=== PATIENT | female | born 1985 | race Caucasian/White ===

== ENCOUNTER 2017-06-28 18:04 | Emergency (ER) | payer BC ==
[~2017-06-28] VITALS: Ht 157.5 cm; Wt 72.7 kg
[2017-06-28] MEDS ORDERED: BENA25CA4 PO (18:11)
[2017-06-28] MEDS ORDERED: TRINTAB3 (18:11)
[2017-06-28] MEDS ORDERED: FAMOTIDINE IV BAG 20 MG in APPROPRIATE DILUENT 1 EA IV ONE (18:45)
[2017-06-28] MEDS ORDERED: diphenhydrAMINE INJ 50MG/ML VIAL (J1200) IV ONE (18:45)
[2017-06-28] MEDS ORDERED: methylPREDNISolone INJ 125 MG/2 ML VIAL (J2930) IV ONE (18:45)
[2017-06-28 19:21] VITALS: BP 130/93
[2017-06-28] MEDS ORDERED: PEPC1TAB4 PO (19:30)
[2017-06-28] MEDS ORDERED: PRED20TA PO (19:30)
== END 2017-06-28 19:36 | disposition home or self-care (01) ==
LOC: M ED 18:04
DX: R22.1 Localized swelling, mass and lump, neck (principal); T78.40XA Allergy, unspecified, initial encounter; Y92.9 Unspecified place or not applicable; Y93.9 Activity, unspecified; Z91.018 Allergy to other foods; Z79.3 Long term (current) use of hormonal contraceptives
CPT/HCPCS: 96374; 96375; 99283; J1200; J2930

== ENCOUNTER → 2018-05-15 | Outpatient (REF) | payer BC ==
[2018-05-15 17:33] LABS: APPEARANCE, URINE HAZY (CLEAR); BACTERIA, URINE AUTO NEGATIVE (NEGATIVE); BILIRUBIN, URINE AUTO NEGATIVE (NEGATIVE); BLOOD, URINE BLOOD 3+ (NEGATIVE); COLOR, URINE YELLOW (YELLOW); GLUCOSE, URINE (UA) AUTO NEGATIVE (NEGATIVE); KETONE, URINE AUTO NEGATIVE (NEGATIVE); LEUKOCYTE ESTERASE, URINE AUTO TRACE (NEGATIVE); MUCUS, URINE SMALL (NEGATIVE); NITRITE, URINE AUTO NEGATIVE (NEGATIVE); PROTEIN, URINE AUTO NEGATIVE (NEGATIVE); RBC, URINE AUTO 17 /HPF (0-3); SPECIFIC GRAVITY URINE AUTO 1.023 (1.002-1.035); SQUAMOUS EPITHELIAL CELL UR AU 2 /HPF (0-6); UROBILINOGEN, URINE AUTO 0.2 mg/dL (0.0-2.0); WBC, URINE AUTO 5 /HPF (0-3)
== END ==
LOC: M LAB REF 17:06
DX: R31.9 Hematuria, unspecified (principal)
CPT/HCPCS: 81001

== ENCOUNTER → 2018-06-13 | Outpatient (CLI) | payer BC | LOC: M RAD 07:33 | DX: R10.11 Right upper quadrant pain (principal) | CPT/HCPCS: J2805 ==

== ENCOUNTER → 2018-08-13 | Outpatient (REF) | payer BC ==
[2018-08-21 14:22] LABS: HPV HYBRID CAPTURE II Negative (Negative)
== END ==
LOC: M SFHCWAGY 08:16
DX: Z12.4 Encounter for screening for malignant neoplasm of cervix (principal)
CPT/HCPCS: G0123

== ENCOUNTER → 2020-04-20 | Outpatient (REF) | payer BC ==
[~2020-04-20] MED LIST: BENA25CA4 PO; PEPC1TAB5 PO; PRED20TA PO; TRINTAB
== END ==
LOC: M LAB REF 09:40
PROVIDERS: ATTEND Dermatology
DX: D22.4 Melanocytic nevi of scalp and neck (principal)

== ENCOUNTER → 2020-05-26 | Outpatient (CLI) | payer BC | LOC: M PLALAB 15:26 | PROVIDERS: ATTEND Advanced Practice Midwife | DX: Z32.00 Encounter for pregnancy test, result unknown (principal) ==

== ENCOUNTER → 2020-05-29 | Outpatient (CLI) | payer BC | LOC: M WUC 10:44 | PROVIDERS: ATTEND Advanced Practice Midwife | DX: Z32.00 Encounter for pregnancy test, result unknown (principal) ==

== ENCOUNTER → 2020-08-22 | Outpatient (REF) | payer BC | LOC: M SFHCWAGY 13:24 | PROVIDERS: ATTEND Nurse Practitioner Women's Health | DX: Z12.4 Encounter for screening for malignant neoplasm of cervix (principal); Z01.419 Encounter for gynecological examination (general) (routine) without abnormal findings ==

== ENCOUNTER → 2020-09-13 | Outpatient (CLI) | payer BC | LOC: M PLALAB 13:35 | PROVIDERS: ATTEND Obstetrics & Gynecology | DX: O36.80X0 Pregnancy with inconclusive fetal viability, not applicable or unspecified (principal); Z3A.00 Weeks of gestation of pregnancy not specified ==

== ENCOUNTER → 2020-09-15 | Outpatient (CLI) | payer BC | LOC: M PLALAB 13:21 | PROVIDERS: ATTEND Obstetrics & Gynecology | DX: O36.80X0 Pregnancy with inconclusive fetal viability, not applicable or unspecified (principal) ==

== ENCOUNTER → 2020-10-06 | Outpatient (CLI) | payer BC ==
[2020-10-06 11:53] LABS: BASO % 0.5 % (0.0-1.0); EOS # 0.5 10^3/uL (0.0-0.5); EOS % 6.1 % (0.0-3.0); HEMOGLOBIN 12.8 g/dl (12.0-15.5); LYMPH # 2.1 10^3/uL (1.5-5.0); LYMPH % 26.5 % (24.0-44.0); MEAN CORPUSCULAR HEMOGLOBIN 28.6 pg (27.0-33.0); MEAN CORPUSCULAR HGB CONC 31.2 g/dl (32.0-36.5); MEAN CORPUSCULAR VOLUME 91.7 fl (80.0-96.0); MONO # 0.5 10^3/uL (0.0-0.8); MONO % 6.3 % (0.0-5.0); NEUTROPHILS # 4.9 10^3/uL (1.5-8.5); NEUTROPHILS % 60.4 % (36.0-66.0); PLATELET COUNT, AUTOMATED 256 10^3/uL (150-450); RED BLOOD COUNT 4.47 10^6/uL (4.00-5.40); WHITE BLOOD COUNT 8.1 10^3/uL (4.0-10.0)
[2020-10-06 12:32] LABS: HEMOGLOBIN A1c 5.7 %
[2020-10-06 12:39] LABS: ALT/SGPT 19 U/L (12-78); BILIRUBIN,TOTAL 0.5 MG/DL (0.2-1.0); BLOOD UREA NITROGEN 9 MG/DL (7-18); CALCIUM LEVEL 8.4 MG/DL (8.5-10.1); CARBON DIOXIDE LEVEL 29 MEQ/L (21-32); CHLORIDE LEVEL 107 MEQ/L (98-107); CREATININE FOR GFR 0.68 MG/DL (0.55-1.30); FREE T4 0.95 NG/DL (0.76-1.46); GLOMERULAR FILTRATION RATE > 60.0 (>60); GLUCOSE, FASTING 85 MG/DL (70-100); SODIUM LEVEL 140 MEQ/L (136-145); THYROID STIMULATING HORMONE 0.876 uIU/ML (0.358-3.740); TOTAL 25(OH) VITAMIN D 32.5 NG/ML (30.0-100.0)
== END ==
LOC: M WUC 09:28
PROVIDERS: ATTEND Physician Assistant
DX: Z13.29 Encounter for screening for other suspected endocrine disorder (principal)

== ENCOUNTER → 2020-11-15 | Outpatient (REF) | payer BC | LOC: M PLALAB 14:33 | PROVIDERS: ATTEND Obstetrics & Gynecology | DX: O36.80X0 Pregnancy with inconclusive fetal viability, not applicable or unspecified (principal) ==

== ENCOUNTER → 2020-11-17 | Outpatient (REF) | payer BC | LOC: M PLALAB 14:30 | PROVIDERS: ATTEND Obstetrics & Gynecology | DX: O36.80X0 Pregnancy with inconclusive fetal viability, not applicable or unspecified (principal); Z3A.00 Weeks of gestation of pregnancy not specified ==

== ENCOUNTER → 2020-11-19 | Outpatient (CLI) | payer BC | LOC: M LAB 13:59 | PROVIDERS: ATTEND Obstetrics & Gynecology | DX: O36.80X0 Pregnancy with inconclusive fetal viability, not applicable or unspecified (principal); Z3A.00 Weeks of gestation of pregnancy not specified ==

== ENCOUNTER → 2020-12-15 | Outpatient (CLI) | payer BC ==
[2020-12-15 13:07] LABS: BASO % 0.4 % (0.0-1.0); EOS # 0.5 10^3/uL (0.0-0.5); HEMATOCRIT 37.2 % (36.0-47.0); HEMOGLOBIN 12.1 g/dl (12.0-15.5); LYMPH % 18.1 % (24.0-44.0); MEAN CORPUSCULAR HEMOGLOBIN 29.7 pg (27.0-33.0); MEAN CORPUSCULAR HGB CONC 32.5 g/dl (32.0-36.5); MEAN CORPUSCULAR VOLUME 91.4 fl (80.0-96.0); MONO # 0.6 10^3/uL (0.0-0.8); MONO % 5.4 % (2.0-8.0); NEUTROPHILS % 71.8 % (36.0-66.0); PLATELET COUNT, AUTOMATED 231 10^3/uL (150-450); RED BLOOD COUNT 4.07 10^6/uL (4.00-5.40); WHITE BLOOD COUNT 11.2 10^3/uL (4.0-10.0)
[2020-12-15 13:33] LABS: GLUCOSE CHALLENGE TEST 1 HOUR 125 MG/DL (LESS THAN 140)
[2020-12-15 14:20] LABS: HIV 1&2 SCREEN CENTAUR NEGATIVE (NEGATIVE)
[2020-12-16 12:43] LABS: HEPATITIS C VIRUS ABY INDEX < 0.0 INDEX (<0.8)
== END ==
LOC: M PLALAB 08:07
PROVIDERS: ATTEND Obstetrics & Gynecology
DX: Z34.81 Encounter for supervision of other normal pregnancy, first trimester (principal); Z3A.01 Less than 8 weeks gestation of pregnancy

== ENCOUNTER → 2021-02-07 | Outpatient (CLI) | payer BC | LOC: M WHC 16:20 | PROVIDERS: ATTEND Obstetrics & Gynecology | DX: Z34.92 Encounter for supervision of normal pregnancy, unspecified, second trimester (principal); Z3A.15 15 weeks gestation of pregnancy; Z53.9 Procedure and treatment not carried out, unspecified reason ==

== ENCOUNTER → 2021-02-27 | Outpatient (CLI) | payer BC ==
--- NOTE | 2021-02-27 08:18 | REP ---
INDICATION: ANATOMY COMPARISON: None. TECHNIQUE: Transabdominal obstetrical ultrasound with color Doppler evaluation. FINDINGS: Examination demonstrates a single live intrauterine in cephalic presentation. motion is identified by technologist. Placenta is noted anterior/fundal and grade 0 without evidence for placenta previa or abruption. Amniotic fluid volume is normal. Cervix measures 3.3 cm in length and appears closed.. Gestational age by LMP 18 weeks 5 days with ABBIE 07/26/2021. Gestational age by current measurements 19 weeks 0 days with ABBIE 07/24/2021. FHR equals 143 beats per minute. Estimated weight 277 grams (72ndpercentile). Anatomical assessment demonstrates normal structures including cranium, choroid plexus, cavum, cerebellum/posterior fossa, lungs, four-chamber heart/ventricular outflow tracts, diaphragm, stomach, cord insertion/three-vessel cord, kidneys/bladder, and extremities. IMPRESSION: Single live intrauterine in cephalic presentation demonstrating appropriate estimated weight. Limited evaluation of the facial features (nose/lips) and spine. Remainder of the anatomical assessment is complete and normal. <Electronically signed by Nolan Herrera > 02/27/21 2072
== END ==
LOC: M WHC 06:59
PROVIDERS: ATTEND Obstetrics & Gynecology
DX: Z34.82 Encounter for supervision of other normal pregnancy, second trimester (principal)

== ENCOUNTER → 2021-03-22 | Outpatient (CLI) | payer BC ==
--- NOTE | 2021-03-22 09:04 | REP ---
INDICATION: F/U ANATOMY COMPARISON: 02/27/2021 TECHNIQUE: Transabdominal obstetrical ultrasound with color Doppler evaluation. FINDINGS: Examination demonstrates a single live intrauterine in transverse presentation. motion is identified by technologist. Placenta is noted anterior and grade 1 without evidence for placenta previa or abruption. Amniotic fluid volume is normal. Cervix measures 5.2 cm in length and appears closed.. Selected gestational age: 22 weeks 2 days with ABBIE 07/26/2021. Gestational age by current measurements 22 weeks 2 days with ABBIE 07/26/2021. FHR equals 155 beats per minute. Estimated weight 456 grams (37thpercentile). Anatomical assessment demonstrates normal structures including cranium, choroid plexus, cavum, cerebellum/posterior fossa, facial features, lungs,diaphragm, stomach, cord insertion/three-vessel cord, kidneys/bladder, and extremities. IMPRESSION: Single live intrauterine in transverse lie demonstrating appropriate interval growth. Limited evaluation of the spine again noted due to positioning. Remainder of the anatomical assessment is complete and normal. <Electronically signed by Nolan Herrera > 03/22/21 0900
== END ==
LOC: M WHC 06:56
PROVIDERS: ATTEND Advanced Practice Midwife
DX: Z34.82 Encounter for supervision of other normal pregnancy, second trimester (principal)

== ENCOUNTER → 2021-03-28 | Outpatient (CLI) | payer BC | LOC: M PLALAB 14:37 | PROVIDERS: ATTEND Advanced Practice Midwife | DX: Z34.90 Encounter for supervision of normal pregnancy, unspecified, unspecified trimester (principal); Z3A.00 Weeks of gestation of pregnancy not specified ==

== ENCOUNTER → 2021-04-25 | Outpatient (CLI) | payer BC ==
[2021-04-25 12:36] LABS: FREE T4 0.73 NG/DL (0.76-1.46); THYROID STIMULATING HORMONE 1.27 uIU/ML (0.358-3.740)
== END ==
LOC: M PLALAB 07:22
PROVIDERS: ATTEND Advanced Practice Midwife
DX: R53.83 Other fatigue (principal)

== ENCOUNTER → 2021-04-25 | Outpatient (CLI) | payer BC ==
--- NOTE | 2021-04-25 10:35 | REP ---
INDICATION: F/U ANATOMY. COMPARISON: Comparison sonography March 22, 2021.. TECHNIQUE: Transabdominal obstetric sonography. FINDINGS: Scanning through the gravid uterus demonstrates a viable single intrauterine gestation in cephalic lie. motion is observed and heart rate is recorded at 147 beats per minute. A anterior placenta is seen, grade 1, without evidence of placenta previa. Closed cervical length is measured at 4.5 cm transabdominally. No extrauterine abnormality is observed. Amniotic fluid is subjectively normal. spine is visualized today and is felt to be unremarkable. In conjunction with the prior studies, anatomic survey is felt to be complete.. Biometry chart: BPD 6.7 cm, 27 weeks 0 days Head circumference 24.8 cm, 27 weeks 0 days Abdominal circumference 22.7 cm, 27 weeks 1 day Femur length 5.2 cm, 27 weeks 4 days Humeral length 4.6 cm, 27 weeks 3 days HC AC ratio normal 1.09 Cephalic index normal 0.75 Estimated weight 1046 g, 2 lb 4 oz, 54th percentile for 26 weeks 6 days IMPRESSION: Viable single intrauterine gestation at 27 weeks 2 days by today's composite sonographic criteria. ABBIE by today's sonography July 23, 2021. No complication identified. Expected gestational age estimate based on known ABBIE of 26 July 2021 is 26 weeks 6 days. Appropriate interval growth. <Electronically signed by Gabriel Thomson > 04/25/21 1031
== END ==
LOC: M WHC 06:56
PROVIDERS: ATTEND Advanced Practice Midwife
DX: Z34.82 Encounter for supervision of other normal pregnancy, second trimester (principal)

== ENCOUNTER 2021-06-14 21:09 | Inpatient (IN) | payer BC ==
[~2021-06-14] VITALS: Ht 157.5 cm; Wt 92.4 kg
[2021-06-14 21:36] VITALS: BP 170/96
[2021-06-14 21:53] VITALS: BP 171/92
[2021-06-14 22:09] VITALS: BP 165/88
[2021-06-14] MEDS ORDERED: ACETAMINOPHEN 500 MG TAB PO PRN (22:20)
[2021-06-14] MEDS ORDERED: OXYTOCIN DRIP 30 UNITS in IV 1 EA IV PRN (22:40)
[2021-06-14] MEDS ORDERED: MAG Sulf (L&D) 4 GM/100 ML 4 GM in IV 1 EA IV ONE (22:40)
[2021-06-14] MEDS ORDERED: CARBOPROST TROMETHAMINE 250 MCG/ML AMP IM PRN (22:40)
[2021-06-14] MEDS ORDERED: CALCIUM GLUCONATE 1,000 MG in D5W MINI-BAG PLUS 100 ML IV PRN (22:40)
[2021-06-14] MEDS ORDERED: LIDOCAINE 1% MDV 20ML VIAL INFIL PRN (22:40)
[2021-06-14] MEDS ORDERED: OXYTOCIN INJ 10 UNITS/ML VIAL (J2590) IM PRN (22:40)
[2021-06-14 22:57] LABS: HEMATOCRIT 34.9 % (36.0-47.0); HEMOGLOBIN 11.3 g/dl (12.0-15.5); MEAN CORPUSCULAR HEMOGLOBIN 29.4 pg (27.0-33.0); MEAN CORPUSCULAR HGB CONC 32.4 g/dl (32.0-36.5); MEAN CORPUSCULAR VOLUME 90.6 fl (80.0-96.0); PLATELET COUNT, AUTOMATED 195 10^3/uL (150-450); RED BLOOD COUNT 3.85 10^6/uL (4.00-5.40); WHITE BLOOD COUNT 11.6 10^3/uL (4.0-10.0)
[2021-06-14] MEDS: BETAMETHASONE SOLUSPAN 6MG/ML 5ML VIAL (J0702 PER 3MG) IM SCH (23:17)
[2021-06-14] MEDS: MAG Sulf (OBGYN) 20GM/500ML 20,000 MG in IV 1 EA IV SCH (23:55)
[2021-06-15] VITALS (65 sets, daily range): BP systolic 112–186; BP diastolic 58–105
[2021-06-15] MEDS ORDERED: hydrALAZINE 20MG/ML 1ML VIAL (J0360 PER 20MG) IV STA
[2021-06-15 01:08] LABS: ALT/SGPT 26 U/L (12-78); BILIRUBIN,TOTAL 0.2 MG/DL (0.2-1.0); CREATININE FOR GFR 0.58 MG/DL (0.55-1.30); GLOMERULAR FILTRATION RATE > 60.0 (>60); LDH LACTATE DEHYDROGENASE 226 U/L (84-246); URIC ACID 4.4 MG/DL (2.6-6.0)
--- NOTE | 2021-06-15 06:32 | HPE ---
HISTORY AND PHYSICAL DATE OF ADMISSION: 06/14/2021 HISTORY OF PRESENT ILLNESS: Allyssa is a 35-year-old 3 para 0-0-2-0 at 33 and 6/7th weeks gestation with an EDC of 07/27/21 based on first trimester ultrasound. She presents to Labor and Delivery today with a report of elevated blood pressure today in the office during her visit as well as severe range blood pressure at home this evening. She does also report a mild dull headache, however she has not taken any Tylenol for the headache. She denies visual disturbances, epigastric pain and right upper quadrant discomfort. She denies painful contractions, vaginal bleeding or leakage of fluid. The fetus has been active. Her care was initiated at [facility] in the first trimester. Her course has been uncomplicated until today's presentation. OBSTETRIC HISTORY: Spontaneous miscarriage x2. OBSTETRIC LABS: O positive, antibody screen is negative, syphilis is negative, gonorrhea and chlamydia negative, hepatitis B is negative, hepatitis C is negative. HIV is negative, Rubella is immune. Gestational diabetic screen is normal at 125. Urine culture showed no growth. GBS is unknown. PAST MEDICAL HISTORY: Abnormal PAP smear, cervical dysplasia. PAST SURGICAL HISTORY: Colposcopy, mole removal. FAMILY HISTORY: Hypertension, heart disease, thyroid disease, liver cancer, prostate cancer. SOCIAL HISTORY: The patient is . Her is at bedside. She is employed as a pharmacist. She is a nonsmoker. Denies alcohol and drug use. Denies a history of any sexually transmitted infections and denies a history of abuse, physical, sexual and emotional. ALLERGIES: No known drug allergies. CURRENT MEDICATIONS: vitamin. OBJECTIVE: Upon arrival, blood pressure is elevated at 170/96, 171/92, 165/88. Her abdomen is gravid, cephalic presentation. Estimated weight 4 pounds. Bedside ultrasound confirms cephalic presentation. heart rate is 135 with moderate variability, positive accelerations, negative decelerations. There is no pattern of contractions. A sterile vaginal examination is deferred at this time. GBS culture has been obtained. Pre-eclamptic labs done earlier in the day; hemoglobin 11.9, hematocrit 36.3, platelets are 206,000, AST is 21, ALT 27, alkaline phosphatase is 76 and spot urine is 0.63. ASSESSMENT: Intrauterine at 33 and 6/7th weeks. heart rate is Category 1, preeclampsia. PLAN: Per consult with Dr. Amy David. Admit the patient to Labor and Delivery. Betamethasone for lung maturity, magnesium sulfate for __ prophylaxis, IV antihypertensive protocol as needed. Plan to likely induce the patient once she is beta complete or pending worsening condition and blood pressures. I did review risks, benefits and alternatives with the patient, and her and her 's questions have been answered. She has been verbally consented for emergency surgery and blood products if they are necessary.
[2021-06-15] MEDS ORDERED: ACETAMINOPHEN 500 MG TAB PO PRN (07:35)
[2021-06-15] MEDS: LR 1,000 ML IV SCH ×3 (08:14→23:35)
[2021-06-15] MEDS: MAG Sulf (OBGYN) 20GM/500ML 20,000 MG in IV 1 EA IV SCH ×2 (08:59→18:59)
--- NOTE | 2021-06-15 20:08 | IPNPDOC ---
Obstetrical Progress Note Date of Service Jun 15, 2021 Subjective 35-year-old G1, P0 at 34+0 weeks gestation. Admitted with a diagnosis of preeclampsia with severe features. She has been started on betamethasone corticosteroids course. She was also started on magnesium sulfate for seizure/neuro prophylaxis. She is currently without any headache. Her blood pressures were normalized from a severe range with IV antihypertensives. She has not required any IV antihypertensives over the past several hours. She is also denying right upper quadrant pain shortness of breath or chest pain. We discussed the rationale for timing of delivery and mode of delivery plan. She agrees with the plan of proceeding with induction of labor since she is 34+ weeks gestation, and has preeclampsia with severe features. SVE: Fingertip d ilation, 25% effacement -3 station. Cephalic. Objective Vital Signs Date Time Temp Pulse Resp B/P (MAP) Pulse Ox O2 Delivery O2 Flow Rate FiO2 06/15/21 19:15 98.7 94 18 142/78 (99) MICHAEL DAVIS DO Jun 15, 2021 20:08
[2021-06-15] MEDS: BETAMETHASONE SOLUSPAN 6MG/ML 5ML VIAL (J0702 PER 3MG) IM SCH (23:20)
[2021-06-15] MEDS ORDERED: miSOPROStol 50MCG 1/2 TABLET SL ONE (23:40)
[2021-06-16] VITALS (41 sets, daily range): BP systolic 116–183; BP diastolic 59–91
[2021-06-16] MEDS: MAG Sulf (OBGYN) 20GM/500ML 20,000 MG in IV 1 EA IV SCH ×3 (05:05→17:55)
--- NOTE | 2021-06-16 06:10 | IPNPDOC ---
Obstetrical Progress Note Date of Service Jun 16, 2021 Subjective Patient is not feeling uncomfortable with her contractions. No BUENROSTRO, visual changes, RUQ pain, sob, cp. Objective Vital Signs Date Time Temp Pulse Resp B/P (MAP) Pulse Ox O2 Delivery O2 Flow Rate FiO2 06/16/21 02:44 90 18 132/70 (90) 06/16/21 02:14 98.6 Assessment Heart Rate Tracing: Category II Tocometer Contractions: Yes Frequency: irregular Sterile Vaginal Examination Dilation: Fingertip Station: -3 Cervical Consistency: Firm Cervical Position: Posterior Assessment and Plan Additional Comments Patient is having recurrent late decelerations and prolonged periods of minimal variability without accelerations. Expressed to patient my concern for uteroplacental insufficiency. She is remote from delivery and has pre-eclampsia with severe features. She has completed corticosteroids. Offered to proceed with PLTCS now, and she has agreed to proceed in this fashion. R/b/a/i of PLTCS reviewed and informed consent obtained. Preparations for the OR being made. MICHAEL DAVIS DO Jun 16, 2021 06:10
[2021-06-16] MEDS ORDERED: MORPHINE PRES-FREE INJ 10 MG/10 ML VIAL (J2274) As Ordered ONE (06:16)
[2021-06-16] MEDS ORDERED: OXYTOCIN 30 UNITS IN 0.9% NaCl 500ML IV BAG (J2590) As Ordered ONE ×2 (06:17→08:34)
[2021-06-16] MEDS ORDERED: AZITHROMYCIN INJ 500 MG, VIAL MATE ADAPTER 1 EACH in NS 250 ML IV ONE (06:20)
[2021-06-16] MEDS ORDERED: TRANEXAMIC ACID INJection 1,000 MG in NS 100 ML IV PRN (06:20)
[2021-06-16] MEDS ORDERED: BICITRA 30ML SOLN UDC PO ONE (06:20)
[2021-06-16] MEDS ORDERED: ceFAZolin SOD 2 GM in IV 1 EA IV ONE (06:20)
[2021-06-16] MEDS ORDERED: CARBOPROST TROMETHAMINE 250 MCG/ML AMP IM PRN (06:20)
[2021-06-16 06:49] LABS: HEMATOCRIT 36.2 % (36.0-47.0); HEMOGLOBIN 11.8 g/dl (12.0-15.5); MEAN CORPUSCULAR HEMOGLOBIN 29.5 pg (27.0-33.0); MEAN CORPUSCULAR HGB CONC 32.6 g/dl (32.0-36.5); MEAN CORPUSCULAR VOLUME 90.5 fl (80.0-96.0); PLATELET COUNT, AUTOMATED 213 10^3/uL (150-450); WHITE BLOOD COUNT 18.2 10^3/uL (4.0-10.0)
[2021-06-16 07:17] LABS: ALBUMIN 2.7 GM/DL (3.2-5.2); ALT/SGPT 28 U/L (12-78); BILIRUBIN,TOTAL 0.2 MG/DL (0.2-1.0); BLOOD UREA NITROGEN 5 MG/DL (7-18); CARBON DIOXIDE LEVEL 20 MEQ/L (21-32); CHLORIDE LEVEL 105 MEQ/L (98-107); GLOMERULAR FILTRATION RATE > 60.0 (>60); GLUCOSE, FASTING 119 MG/DL (70-100); LDH LACTATE DEHYDROGENASE 295 U/L (84-246); POTASSIUM SERUM 4.3 MEQ/L (3.5-5.1); SODIUM LEVEL 137 MEQ/L (136-145); TOTAL PROTEIN 6.4 GM/DL (6.4-8.2); URIC ACID 5.1 MG/DL (2.6-6.0)
[2021-06-16] MEDS ORDERED: diphenhydrAMINE 50MG/ML VIAL (J1200) IV PRN (07:23)
[2021-06-16] MEDS ORDERED: ONDANSETRON 4MG/2ML VIAL IV PRN ×3 (07:23→08:20)
[2021-06-16] MEDS ORDERED: NALOXONE INJ 0.4MG/1ML VIAL (J2310 PER 1MG) IV PRN ×2 (07:23)
[2021-06-16] MEDS ORDERED: METOCLOPRAMIDE INJ 10MG/2ML VIAL (J2765 PER 1) IV PRN (07:23)
[2021-06-16] MEDS ORDERED: NALBUPHINE HCL 10 MG/ML AMP (J2300) IV PRN (07:23)
[2021-06-16] MEDS ORDERED: PHENYLephrine 500MCG 5ML (100MCG/ML) SYRINGE As Ordered ONE (07:45)
[2021-06-16] MEDS ORDERED: ePHEDrine SULFATE 25 MG/5 ML(5MG/ML) SYRINGE As Ordered ONE (07:45)
[2021-06-16] MEDS ORDERED: dexameTHASONE 4 MG/ML 1ML VIAL (J1100 PER 1MG) As Ordered ONE (07:45)
[2021-06-16] MEDS ORDERED: ONDANSETRON 4MG/2ML VIAL As Ordered ONE (07:45)
[2021-06-16] MEDS ORDERED: KETOROLAC 60MG 2ML VIAL As Ordered ONE (07:45)
[2021-06-16 08:15] LABS: CORD GAS ABE V -5.6; CORD GAS HCO3 V 21.9 MEQ/L; CORD GAS O2 SAT V 24.3 %; CORD GAS PCO2 V 50.4 mmHg; CORD GAS PH V 7.256 UNITS; CORD GAS PO2 V 15.4 mmHg; CORD GAS SBC V 18.2 MEQ/L; CORD GAS TCO2 V 23.5 MEQ/L
[2021-06-16 08:18] LABS: CORD GAS ABE A -6.2; CORD GAS HCO3 A 22.1 MEQ/L; CORD GAS O2 SAT A 17.4 %; CORD GAS PCO2 A 54.6 mmHg; CORD GAS PH A 7.225 UNITS; CORD GAS PO2 A 13.7 mmHg; CORD GAS SBC A 17.7 MEQ/L; CORD GAS TCO2 A 23.8 MEQ/L
[2021-06-16] MEDS ORDERED: MEASLES,MUMPS,RUBELLA VACCINE INJ (MMR-II) (90707) SC SCH (08:20)
[2021-06-16] MEDS ORDERED: SIMETHICONE 80MG CHEW TAB PO PRN (08:20)
[2021-06-16] MEDS ORDERED: RHOGAM 300 MCG (1500 IU) INJ (J2790) IM SCH (08:20)
[2021-06-16] MEDS ORDERED: PERCOCET 5MG/325MG TAB PO PRN ×3 (08:20→08:55)
--- NOTE | 2021-06-16 08:37 | ROOPDOC ---
[facility] Report Of Operation Report of Operation DATE OF PROCEDURE: 06/16/2021 PREPROCEDURE DIAGNOSES: 34+ weeks gestation, preeclampsia with severe features, remote from delivery, nonreassuring heart rate tracing POSTPROCEDURE DIAGNOSES: Same PROCEDURE: Primary low transverse section SURGEON: Stefano Pearson DO FACOG MICROSTRATEGY ARCHITECT DEVELOPER: Jayjay Wheat CNM (Essential role in retraction, extraction, and closure of all tissue layers) ANESTHESIA: Spinal ESTIMATED BLOOD LOSS: 500 mL. IV FLUIDS: 1600 mL LR URINE OUTPUT: 100 mL COMPLICATIONS: None. PREOPERATIVE ANTIBIOTICS: Ancef 2g IV x 1, azithromycin 500mg IV. COMPLICATIONS: none DATA: Apgars 8 and 9. Birthweight 1990 g, 4 lbs 6 oz. Female. SPECIMENS: none PRIMARY INDICATION FOR : Nonreassuring heart rate tracing, remote from delivery DESCRIPTION OF PROCEDURE: The patient was counseled on the risks, benefits, indications and alternatives of the procedure. Informed consent was obtained. She was taken to the operating room with IV running and placed on the operating table in the dorsal supine position with a leftward tilt. Regional anesthesia was found to be adequate. Sequential compression devices were placed on the lower extremities. A Oliveira catheter was placed under sterile conditions. She was prepared and draped in normal sterile fashion. A time out was performed per protocol. Regional anesthesia was again found to be adequate. A Pfannenstiel skin incision was made with the 10 blade. The 10 blade was used to dissect down to the level of the rectus sheath fascia. The rectus sheath pressure was incised midline and this was extended bilaterally with Mcintosh scissors , and manual stretch. The rectus muscle bellies were dissected off the rectus sheath fascia superiorly and inferiorly using both sharp and blunt dissection. The midline was identified. The peritoneum was identified and entered digitally. The peritoneal opening was extended with manual stretch. The Mobius retractor was placed. The vesicouterine peritoneum was dissected with Metzenbaum scissors to create the bladder flap. A low transverse uterine incision was made with the 10 blade. This was extended with manual stretch. The amniotic sac was punctured, and clear fluid was noted. The baby delivered through the hysterotomy without difficulty. The cord was doubly clamped and cut, and the baby was handed off to awaiting care. data shown above. Cord gases obtained. The placenta was removed manually. The intrauterine cavity was cleared of all clot and debris. The hysterotomy was closed with 0 Vicryl in running locked fashion. This was reinforced with a second imbricating layer using 0 Monocryl in running fashion. Excellent hemostasis of the hysterotomy was noted. The pelvis was irrigated and the fluid suctioned. The Mobius retractor was removed. The peritoneum was closed with 3-0 Vicryl running fashion. The rectus muscle bellies were reapproximated with interrupted stitches using 3-0 Vicryl. The rectus muscles bellies were hemostatic. The rectus sheath fascia was closed with 0 Vicryl running fashion. The subcutaneous layer was irrigated and the fluid suctioned. Small bleeding vessels were cauterized with Bovie. Excellent hemostasis was noted. The subcutaneous layer was reapproximated with 3-0 Vicryl running fashion. Skin was closed with 3-0 Monocryl in subcuticular fashion. An Optifoam bandage was placed over the closed incision. Sponge, needle and instrument counts were correct per protocol throughout the procedure. The patient tolerated the entire procedure very well. She was transferred to the PACU in stable condition. DO JOHANNA Nicholas JONATHAN R. DO Jun 16, 2021 08:37
[2021-06-16] MEDS ORDERED: PERCOCET PO (08:40)
[2021-06-16] MEDS ORDERED: IBUP80TA PO (08:40)
[2021-06-16] MEDS ORDERED: OXYTOCIN DRIP 30 UNITS in IV 1 EA IV SCH (08:40)
[2021-06-16] MEDS ORDERED: COLA100C5 PO (08:40)
[2021-06-16] MEDS ORDERED: LR 1,000 ML IV SCH (08:55)
[2021-06-16] MEDS ORDERED: fentaNYL 100 MCG/2 ML INJECTION (J3010) IV PRN (08:55)
[2021-06-16] MEDS: PRENATAL VITAMINS CHEWABLE TABLET PO SCH (09:00)
[2021-06-16] MEDS ORDERED: OXYTOCIN DRIP 30 UNITS in IV 1 EA IV ONE (09:10)
[2021-06-16] MEDS: DOCUSATE SODIUM 100MG CAPSULE PO SCH ×2 (11:20→21:00)
[2021-06-16] MEDS: ACETAMINOPHEN 500 MG TAB PO PRN (11:28)
[2021-06-16] MEDS: LR 1,000 ML IV SCH ×2 (12:42→20:00)
[2021-06-16] MEDS: KETOROLAC 30 MG/ML 1ML VIAL IV SCH ×2 (13:40→21:30)
[2021-06-16] MEDS: NYSTATIN 100,000 UNITS/GM TOPICAL PWD 15 GM TOP SCH ×2 (14:38→21:00)
[2021-06-17] VITALS (12 sets, daily range): BP systolic 129–174; BP diastolic 72–95
[2021-06-17] MEDS: KETOROLAC 30 MG/ML 1ML VIAL IV SCH (03:22)
[2021-06-17] MEDS: DOCUSATE SODIUM 100MG CAPSULE PO SCH ×2 (06:30→21:08)
[2021-06-17 08:20] LABS: HEMOGLOBIN 11.9 g/dl (12.0-15.5); MEAN CORPUSCULAR HEMOGLOBIN 30.4 pg (27.0-33.0); MEAN CORPUSCULAR HGB CONC 33.1 g/dl (32.0-36.5); MEAN CORPUSCULAR VOLUME 91.8 fl (80.0-96.0); PLATELET COUNT, AUTOMATED 236 10^3/uL (150-450); RED BLOOD COUNT 3.92 10^6/uL (4.00-5.40); WHITE BLOOD COUNT 20.6 10^3/uL (4.0-10.0)
[2021-06-17] MEDS: PRENATAL VITAMINS CHEWABLE TABLET PO SCH (09:56)
[2021-06-17] MEDS: IBUPROFEN 800 MG TAB PO SCH ×2 (09:56→18:26)
[2021-06-17] MEDS: NYSTATIN 100,000 UNITS/GM TOPICAL PWD 15 GM TOP SCH ×2 (09:57→21:08)
--- NOTE | 2021-06-17 16:45 | IPNPDOC ---
Progress Note Date of Service: Jun 17, 2021 Day#: 1 Progress Note SUBJECT: Doing well without complaints. Ambulating, voiding and pain is well- controlled. Reports minimal lochia. OBJECTIVE: VITAL SIGNS: Within normal limits, afebrile. Alert and oriented times three. Abdomen: Fundus firm at U-2. Soft, NTTP. Incision: dressed Ext: neg calf tenderness. ASSESSMENT: /postoperative day #1 status post delivery. Recovering in stable condition. PLAN: 1. Continue routine /postoperative care 2. Discharge plans for tomorrow VS, I&O, 24H, Fishbone Vital Signs/I&O Vital Signs Date Time Temp Pulse Resp B/P (MAP) Pulse Ox O2 Delivery O2 Flow Rate FiO2 06/17/21 14:33 98.4 86 18 152/82 (105) 06/17/21 09:16 95 Room Air I&O- Last 24 Hours up to 6 AM 06/17/21 06:00 Intake Total 2307.6 ml Output Total 9500 ml Balance -7192.4 ml Laboratory Data 24H LABS Laboratory Tests 2 06/17/21 08:05: Nucleated Red Blood Cells % (auto) 0.1H CBC/BMP Laboratory Tests 06/17/21 08:05 Microbiology Microbiology 06/14/21 Group B Streptococcus Screen ([facility]) - Final, Complete SAMUEL HILL MD. Jun 17, 2021 16:45
[2021-06-18] VITALS (8 sets, daily range): BP systolic 152–186; BP diastolic 80–98
[2021-06-18] MEDS: IBUPROFEN 800 MG TAB PO SCH ×3 (01:10→18:14)
[2021-06-18] MEDS ORDERED: LABETALOL 200 MG TAB PO SCH (06:00)
[2021-06-18] MEDS: NYSTATIN 100,000 UNITS/GM TOPICAL PWD 15 GM TOP SCH ×2 (09:00→22:01)
[2021-06-18] MEDS: DOCUSATE SODIUM 100MG CAPSULE PO SCH ×2 (09:00→22:01)
--- NOTE | 2021-06-18 10:33 | IPNPDOC ---
Progress Note Date of Service: Jun 18, 2021 Day#: 2 Progress Note SUBJECT: Doing well without complaints. Ambulating, voiding and pain is well-c ontrolled. Reports minimal lochia. Patient was started on 200 mg of labetalol twice a day secondary to severe range blood pressure OBJECTIVE: VITAL SIGNS: Within normal limits, afebrile. Alert and oriented times three. Abdomen: Fundus firm at U-2. Soft, NTTP. Incision: dressed Ext: neg calf tenderness. ASSESSMENT: /postoperative day #2 status post delivery. Rec overing in stable condition. Preeclampsiastable. Labetalol 200 mg twice a day PLAN: 1. Continue routine /postoperative care 2. Discharge plans for tomorrow VS, I&O, 24H, Fishbone Vital Signs/I&O Vital Signs Date Time Temp Pulse Resp B/P (MAP) Pulse Ox O2 Delivery O2 Flow Rate FiO2 06/18/21 06:00 73 186/98 06/18/21 05:30 98.6 18 98 06/18/21 01:54 Room Air I&O- Last 24 Hours up to 6 AM 06/18/21 06:00 Output Total 800 ml Balance -800 ml Laboratory Data Microbiology Microbiology 06/14/21 Group B Streptococcus Screen ([facility]YS) - Final, Complete SAMUEL HILL MD. Jun 18, 2021 10:33
[2021-06-18] MEDS: PRENATAL VITAMINS CHEWABLE TABLET PO SCH (10:37)
[2021-06-18] MEDS: ACETAMINOPHEN 500 MG TAB PO PRN ×2 (10:40→18:15)
[2021-06-18] MEDS: LABETALOL 200 MG TAB PO SCH ×2 (14:41→22:05)
[2021-06-19] VITALS (8 sets, daily range): BP systolic 132–186; BP diastolic 70–102
[2021-06-19] MEDS: ACETAMINOPHEN 500 MG TAB PO PRN ×3 (00:22→21:49)
[2021-06-19] MEDS: IBUPROFEN 800 MG TAB PO SCH ×3 (01:53→18:43)
[2021-06-19] MEDS: LABETALOL 200 MG TAB PO SCH (05:49)
[2021-06-19] MEDS ORDERED: NIFEdipine 10 MG CAP PO SCH (09:00)
[2021-06-19] MEDS: PRENATAL VITAMINS CHEWABLE TABLET PO SCH ×2 (09:00→09:55)
[2021-06-19] MEDS ORDERED: LABETALOL 100MG TAB PO ONE (09:50)
[2021-06-19] MEDS: NYSTATIN 100,000 UNITS/GM TOPICAL PWD 15 GM TOP SCH ×2 (09:55→21:36)
[2021-06-19] MEDS: DOCUSATE SODIUM 100MG CAPSULE PO SCH ×2 (09:55→21:34)
[2021-06-19] MEDS ORDERED: NIFEdipine 10 MG CAP PO STA (19:05)
[2021-06-19] MEDS: LABETALOL 100MG TAB PO SCH (21:35)
[2021-06-20] VITALS (8 sets, daily range): BP systolic 136–165; BP diastolic 82–96
[2021-06-20] MEDS: IBUPROFEN 800 MG TAB PO SCH ×3 (01:14→18:42)
[2021-06-20] MEDS: ACETAMINOPHEN 500 MG TAB PO PRN (05:45)
[2021-06-20] MEDS: DOCUSATE SODIUM 100MG CAPSULE PO SCH ×2 (08:21→20:13)
[2021-06-20] MEDS: LABETALOL 100MG TAB PO SCH ×3 (08:22→20:15)
[2021-06-20] MEDS: NYSTATIN 100,000 UNITS/GM TOPICAL PWD 15 GM TOP SCH ×2 (08:26→21:00)
[2021-06-20] MEDS: NIFEdipine 30 MG XL TAB PO SCH (08:34)
[2021-06-20] MEDS: PRENATAL VITAMINS CHEWABLE TABLET PO SCH (09:00)
[2021-06-21] MEDS: IBUPROFEN 800 MG TAB PO SCH ×2 (01:03→09:53)
[2021-06-21 01:10] VITALS: BP 140/80
[2021-06-21 06:05] VITALS: BP 170/88
[2021-06-21] MEDS: PRENATAL VITAMINS CHEWABLE TABLET PO SCH ×2 (09:00→09:21)
[2021-06-21] MEDS: NIFEdipine 30 MG XL TAB PO SCH (09:21)
[2021-06-21] MEDS: DOCUSATE SODIUM 100MG CAPSULE PO SCH (09:21)
[2021-06-21] MEDS: LABETALOL 100MG TAB PO SCH ×2 (09:22→15:54)
[2021-06-21] MEDS: NYSTATIN 100,000 UNITS/GM TOPICAL PWD 15 GM TOP SCH (09:53)
[2021-06-21 10:00] VITALS: BP 143/87
[2021-06-21 13:10] VITALS: BP 148/88
--- NOTE | 2021-06-21 14:37 | DSES ---
DISCHARGE SUMMARY DATE OF ADMISSION: 06/14/2021 DATE OF DISCHARGE: 06/21/2021 DISCHARGE DIAGNOSIS: 1. Primary section, postop day #5. 2. Preeclampsia with severe features, now stable condition. SURGEON: MICHAEL DAVIS DO ASSESSMENT: BENJAMIN WARNER CNM HISTORY: Allyssa is a 35-year-old 1 para 0-1-0-1 now who is admitted to Labor and Delivery with preeclampsia with severe features. She underwent a primary section due to intolerance to labor and remote from delivery. Estimated blood loss was 500 ml, delivered a live female weighing 1990 grams, 4 pounds, 6 ounces, Apgars were 8 and 9. Postoperatively, her course has been complicated by persistent severe range blood pressures, currently now managed with Labetalol 300 mg p.o. t.i.d. and Procardia 30 mg daily. She denies headache, visual disturbances, epigastric pain and right upper quadrant discomfort. She is breast-feeding well. She is tolerating p.o. fluids and a regular diet. Her pain has been well-managed with p.o. pain medications. She is out of bed for self-care, ambulating back and forth to the Intensive Care Unit without difficulty. She does request discharge home. OBJECTIVE: Temperature 97.5, pulse is 90, respirations 16, BP is 143/87 today. She is alert and oriented x3. Breasts are soft and nontender. Nipple are intact. Fundus is firm at 3 fingerbreadths below umbilicus. Incision is intact, the Optifoam dressing was removed, Steri-Strips removed. There is no drainage, no redness, no warmth, no edema around the incision. Perineum is intact. Lochia rubra scant. Bilateral lower extremities with +2 pitting edema still present. Preoperatively, her CBC on 06/14/2021: Hemoglobin 11.3, 34.9 for hematocrit and 195,000 for platelets. Postoperative CBC on 06/17/2021: Hemoglobin 11.9, hematocrit 36 and platelets are 236,000. PLAN: Discharge the patient home. She is to follow-up at [facility] in two days for a blood pressure check, a two week incision check and an 8 week visit. Prescriptions have been e-prescribed for her antihypertensive medication as well as pain medications. I did review discharge instructions that include breast cancer, incision care, niki-care, pelvic rest, activity and lifting restrictions, danger signs to report and access to her care provider. She and her 's questions have been answered and they are agreeable to discharge.
[2021-06-21 15:54] VITALS: BP 126/71
== END 2021-06-21 16:45 | disposition home or self-care (01) | DRG 540 ==
LOC: M LDO 21:09 → M LDI 22:37 → M OBS 06-17 08:12
PROVIDERS: ADMIT Advanced Practice Midwife; ATTEND Advanced Practice Midwife
PROC: 10D00Z1 Extraction of Products of Conception, Low, Open Approach (ICD-10-PCS; principal; 2021-06-16 08:13)
DX: O14.14 Severe pre-eclampsia complicating childbirth (principal); O76 Abnormality in fetal heart rate and rhythm complicating labor and delivery; Z37.0 Single live birth; Z3A.34 34 weeks gestation of pregnancy

== ENCOUNTER → 2021-06-14 | Outpatient (CLI) | payer BC ==
[~2021-06-14] MED LIST changes: +COLA100C5 PO; +IBUP80TA PO; +PERCOCET PO
[2021-06-14 17:55] LABS: HEMATOCRIT 36.3 % (36.0-47.0); HEMOGLOBIN 11.9 g/dl (12.0-15.5); MEAN CORPUSCULAR HEMOGLOBIN 29.6 pg (27.0-33.0); MEAN CORPUSCULAR HGB CONC 32.8 g/dl (32.0-36.5); MEAN CORPUSCULAR VOLUME 90.3 fl (80.0-96.0); PLATELET COUNT, AUTOMATED 206 10^3/uL (150-450); RED BLOOD COUNT 4.02 10^6/uL (4.00-5.40); WHITE BLOOD COUNT 12.4 10^3/uL (4.0-10.0)
[2021-06-14 18:10] LABS: CREATININE,RANDOM URINE 50.9 MG/DL; TOTAL PROTEIN,RANDOM URINE 31.9 MG/DL (0.0-12.0)
[2021-06-14 18:12] LABS: ALBUMIN 2.7 GM/DL (3.2-5.2); ALT/SGPT 27 U/L (12-78); BILIRUBIN,TOTAL 0.2 MG/DL (0.2-1.0); BLOOD UREA NITROGEN 7 MG/DL (7-18); CALCIUM LEVEL 8.3 MG/DL (8.5-10.1); CARBON DIOXIDE LEVEL 23 MEQ/L (21-32); CHLORIDE LEVEL 110 MEQ/L (98-107); CREATININE FOR GFR 0.56 MG/DL (0.55-1.30); GLOMERULAR FILTRATION RATE > 60.0 (>60); GLUCOSE, FASTING 80 MG/DL (70-100); POTASSIUM SERUM 4.2 MEQ/L (3.5-5.1); SODIUM LEVEL 140 MEQ/L (136-145)
== END ==
LOC: M PLALAB 15:53
PROVIDERS: ATTEND Obstetrics & Gynecology
DX: O16.3 Unspecified maternal hypertension, third trimester (principal); Z3A.00 Weeks of gestation of pregnancy not specified

== ENCOUNTER → 2021-06-14 | Outpatient (CLI) | payer BC ==
[~2021-06-14] MED LIST changes: -COLA100C5 PO; -IBUP80TA PO; -PERCOCET PO
== END ==
LOC: M LAB 07:20
PROVIDERS: ATTEND Advanced Practice Midwife
DX: O99.810 Abnormal glucose complicating pregnancy (principal); Z3A.00 Weeks of gestation of pregnancy not specified

== ENCOUNTER → 2021-10-12 | Outpatient (REF) | payer BC ==
[~2021-10-12] MED LIST changes: +COLA100C5 PO; +IBUP80TA PO; +PERCOCET PO
== END ==
LOC: M SFHCWAGY 10:05
PROVIDERS: ATTEND Nurse Practitioner Women's Health
DX: Z12.4 Encounter for screening for malignant neoplasm of cervix (principal); Z87.42 Personal history of other diseases of the female genital tract; R87.610 Atypical squamous cells of undetermined significance on cytologic smear of cervix (ASC-US)
CPT/HCPCS: 87624; G0123

== ENCOUNTER → 2022-11-28 | Outpatient (CLI) | payer BC ==
[2022-11-28 13:38] LABS: HEMATOCRIT 37.7 % (36.0-47.0); HEMOGLOBIN 12.1 g/dl (12.0-15.5); MEAN CORPUSCULAR HEMOGLOBIN 29.2 pg (27.0-33.0); MEAN CORPUSCULAR HGB CONC 32.1 g/dl (32.0-36.5); MEAN CORPUSCULAR VOLUME 91.1 fl (80.0-96.0); PLATELET COUNT, AUTOMATED 237 10^3/uL (150-450); RED BLOOD COUNT 4.14 10^6/uL (4.00-5.40)
[2022-11-28 13:58] LABS: URIC ACID 3.7 MG/DL (3.1-7.8)
[2022-11-28 14:00] LABS: LDH LACTATE DEHYDROGENASE 171 U/L (120-246)
[2022-11-28 14:02] LABS: ALT/SGPT 17 U/L (7.0-40); AST/SGOT 16 U/L (<34); BILIRUBIN,TOTAL 0.3 MG/DL (0.3-1.2); GLOMERULAR FILTRATION RATE > 60.0 (>60)
[2022-11-28 19:17] LABS: HIV 1&2 SCREEN CENTAUR NEGATIVE (NEGATIVE)
== END ==
LOC: M PLALAB 11:41
PROVIDERS: ATTEND Advanced Practice Midwife
DX: Z36.9 Encounter for antenatal screening, unspecified (principal)

== ENCOUNTER → 2022-12-27 | Outpatient (REF) | payer BC ==
[2022-12-27 20:42] LABS: TOTAL PROTEIN,RANDOM URINE 10.1 MG/DL (0.0-14.0)
[2022-12-27 20:47] LABS: CREATININE,RANDOM URINE 65.2 MG/DL
[2022-12-27 22:06] LABS: GC DNA AMPLIFICATION NEGATIVE (NEGATIVE)
== END ==
LOC: M LAB REF 20:09 → M SFHCWAGY 20:09
PROVIDERS: ATTEND Advanced Practice Midwife
DX: Z34.81 Encounter for supervision of other normal pregnancy, first trimester (principal)

== ENCOUNTER → 2023-01-25 | Outpatient (REF) | payer BC ==
[2023-01-25 13:48] LABS: AMORPHOUS SEDIMENT SMALL (NEGATIVE); APPEARANCE, URINE HAZY (CLEAR); BACTERIA, URINE AUTO 1+ (NEGATIVE); BILIRUBIN, URINE AUTO NEGATIVE (NEGATIVE); BLOOD, URINE BLOOD 1+ (NEGATIVE); COLOR, URINE YELLOW (YELLOW); GLUCOSE, URINE (UA) AUTO NEGATIVE (NEGATIVE); KETONE, URINE AUTO TRACE mg/dL (NEGATIVE); LEUKOCYTE ESTERASE, URINE AUTO 1+ (NEGATIVE); NITRITE, URINE AUTO NEGATIVE (NEGATIVE); PROTEIN, URINE AUTO NEGATIVE (NEGATIVE); RBC, URINE AUTO 4 /HPF (0-3); SPECIFIC GRAVITY URINE AUTO 1.009 (1.002-1.035); SQUAMOUS EPITHELIAL CELL UR AU 16 /HPF (0-6); UROBILINOGEN, URINE AUTO 0.2 mg/dL (0.0-2.0); WBC, URINE AUTO 2 /HPF (0-3)
[2023-01-25 13:54] LABS: TOTAL PROTEIN,RANDOM URINE 12.4 MG/DL (0.0-14.0)
== END ==
LOC: M PLALAB 11:19
PROVIDERS: ATTEND Advanced Practice Midwife
DX: O10.012 Pre-existing essential hypertension complicating pregnancy, second trimester (principal)

== ENCOUNTER → 2023-02-07 | Outpatient (REF) | payer BC | LOC: M LAB REF 13:18 | PROVIDERS: ATTEND Obstetrics & Gynecology | DX: O34.211 Maternal care for low transverse scar from previous cesarean delivery (principal) ==

== ENCOUNTER → 2023-02-22 | Outpatient (CLI) | payer BC | LOC: M WHC 06:52 | PROVIDERS: ATTEND Advanced Practice Midwife | DX: O09.292 Supervision of pregnancy with other poor reproductive or obstetric history, second trimester (principal); Z3A.20 20 weeks gestation of pregnancy ==

== ENCOUNTER → 2023-04-18 | Outpatient (CLI) | payer BC ==
[2023-04-18 10:52] LABS: HEMATOCRIT 33.3 % (36.0-47.0); HEMOGLOBIN 10.5 g/dl (12.0-15.5); MEAN CORPUSCULAR HEMOGLOBIN 28.8 pg (27.0-33.0); MEAN CORPUSCULAR HGB CONC 31.5 g/dl (32.0-36.5); MEAN CORPUSCULAR VOLUME 91.5 fl (80.0-96.0); PLATELET COUNT, AUTOMATED 197 10^3/uL (150-450); RED BLOOD COUNT 3.64 10^6/uL (4.00-5.40); WHITE BLOOD COUNT 12.1 10^3/uL (4.0-10.0)
[2023-04-18 11:22] LABS: TOTAL PROTEIN,RANDOM URINE 11.1 MG/DL (0.0-14.0)
[2023-04-18 11:26] LABS: CREATININE,RANDOM URINE 37.3 MG/DL
[2023-04-18 11:27] LABS: ALBUMIN 2.9 G/DL (3.2-5.2); ALKALINE PHOSPHATASE 58 U/L (46-116); ALT/SGPT 14 U/L (7.0-40); AST/SGOT 8 U/L (<34); BILIRUBIN,TOTAL 0.3 MG/DL (0.3-1.2); BLOOD UREA NITROGEN 6 MG/DL (9-23); CALCIUM LEVEL 8.7 MG/DL (8.5-10.1); CARBON DIOXIDE LEVEL 24 MMOL/L (20-31); CHLORIDE LEVEL 105 MMOL/L (98-107); CREATININE FOR GFR 0.45 MG/DL (0.55-1.30); GLOMERULAR FILTRATION RATE > 60.0 (>60); GLUCOSE, FASTING 153 MG/DL (60-100); POTASSIUM SERUM 3.6 MMOL/L (3.5-5.1); SODIUM LEVEL 139 MMOL/L (136-145); TOTAL PROTEIN 5.7 G/DL (5.7-8.2)
[2023-04-18 12:19] LABS: GC DNA AMPLIFICATION NEGATIVE (NEGATIVE)
== END ==
LOC: M PLALAB 07:48
PROVIDERS: ATTEND Obstetrics & Gynecology
DX: Z34.92 Encounter for supervision of normal pregnancy, unspecified, second trimester (principal)

== ENCOUNTER → 2023-05-17 | Outpatient (CLI) | payer BC | LOC: M WHC 07:11 | PROVIDERS: ATTEND Obstetrics & Gynecology | DX: O24.419 Gestational diabetes mellitus in pregnancy, unspecified control (principal); Z3A.34 34 weeks gestation of pregnancy ==

== ENCOUNTER → 2023-05-22 | Outpatient (CLI) | payer BC | LOC: M WHC 10:36 | PROVIDERS: ATTEND Obstetrics & Gynecology | DX: O28.8 Other abnormal findings on antenatal screening of mother (principal); Z3A.32 32 weeks gestation of pregnancy ==

== ENCOUNTER → 2023-05-22 | Outpatient (CLI) | payer BC ==
[2023-05-22 14:02] LABS: HEMATOCRIT 35.2 % (36.0-47.0); MEAN CORPUSCULAR HEMOGLOBIN 28.1 pg (27.0-33.0); MEAN CORPUSCULAR HGB CONC 31.3 g/dl (32.0-36.5); MEAN CORPUSCULAR VOLUME 89.8 fl (80.0-96.0); PLATELET COUNT, AUTOMATED 214 10^3/uL (150-450); RED BLOOD COUNT 3.92 10^6/uL (4.00-5.40); WHITE BLOOD COUNT 12.9 10^3/uL (4.0-10.0)
[2023-05-22 14:26] LABS: TOTAL PROTEIN,RANDOM URINE 8.9 MG/DL (0.0-14.0)
[2023-05-22 14:31] LABS: CREATININE,RANDOM URINE 45.9 MG/DL
[2023-05-22 14:35] LABS: ALBUMIN 3.1 G/DL (3.2-5.2); ALKALINE PHOSPHATASE 72 U/L (46-116); ALT/SGPT 19 U/L (7.0-40); AST/SGOT 12 U/L (<34); BILIRUBIN,TOTAL 0.3 MG/DL (0.3-1.2); BLOOD UREA NITROGEN < 5 MG/DL (9-23); CALCIUM LEVEL 8.5 MG/DL (8.5-10.1); CARBON DIOXIDE LEVEL 23 MMOL/L (20-31); CHLORIDE LEVEL 108 MMOL/L (98-107); CREATININE FOR GFR 0.52 MG/DL (0.55-1.30); GLOMERULAR FILTRATION RATE > 60.0 (>60); GLUCOSE, FASTING 71 MG/DL (60-100); POTASSIUM SERUM 3.8 MMOL/L (3.5-5.1); SODIUM LEVEL 141 MMOL/L (136-145); TOTAL PROTEIN 6.1 G/DL (5.7-8.2)
== END ==
LOC: M PLALAB 11:30
PROVIDERS: ATTEND Obstetrics & Gynecology
DX: O16.3 Unspecified maternal hypertension, third trimester (principal); Z3A.00 Weeks of gestation of pregnancy not specified

== ENCOUNTER → 2023-06-05 | Outpatient (CLI) | payer BC ==
[2023-06-05 13:55] LABS: HEMATOCRIT 36.8 % (36.0-47.0); HEMOGLOBIN 11.6 g/dl (12.0-15.5); MEAN CORPUSCULAR HEMOGLOBIN 28.4 pg (27.0-33.0); MEAN CORPUSCULAR HGB CONC 31.5 g/dl (32.0-36.5); MEAN CORPUSCULAR VOLUME 90.2 fl (80.0-96.0); PLATELET COUNT, AUTOMATED 201 10^3/uL (150-450); RED BLOOD COUNT 4.08 10^6/uL (4.00-5.40); WHITE BLOOD COUNT 12.6 10^3/uL (4.0-10.0)
[2023-06-05 13:59] LABS: LDH LACTATE DEHYDROGENASE 192 U/L (120-246)
[2023-06-05 14:00] LABS: ALT/SGPT 22 U/L (7.0-40); AST/SGOT 13 U/L (<34); BILIRUBIN,TOTAL 0.3 MG/DL (0.3-1.2); CREATININE FOR GFR 0.47 MG/DL (0.55-1.30); GLOMERULAR FILTRATION RATE > 60.0 (>60)
[2023-06-05 14:02] LABS: URIC ACID 4.1 MG/DL (3.1-7.8)
[2023-06-05 14:08] LABS: TOTAL PROTEIN,RANDOM URINE 7.4 MG/DL (0.0-14.0)
[2023-06-05 14:13] LABS: CREATININE,RANDOM URINE 37.6 MG/DL
== END ==
LOC: M PLALAB 08:59
PROVIDERS: ATTEND Obstetrics & Gynecology
DX: O13.9 Gestational [pregnancy-induced] hypertension without significant proteinuria, unspecified trimester (principal)

== ENCOUNTER → 2023-06-11 | Outpatient (REF) | payer BC | LOC: M PLALAB 11:07 | PROVIDERS: ATTEND Obstetrics & Gynecology | DX: O34.211 Maternal care for low transverse scar from previous cesarean delivery (principal); O24.419 Gestational diabetes mellitus in pregnancy, unspecified control; O16.3 Unspecified maternal hypertension, third trimester; O13.3 Gestational [pregnancy-induced] hypertension without significant proteinuria, third trimester; Z3A.35 35 weeks gestation of pregnancy ==

== ENCOUNTER 2023-06-21 05:34 | Inpatient (IN) | payer BC ==
[2023-06-21] VITALS (10 sets, daily range): BP systolic 124–143; BP diastolic 61–92; TEMP 97.2; O2SAT 95–99
[~2023-06-21] VITALS: Ht 157.5 cm; Wt 94.6 kg
[~2023-06-21 05:34] MED LIST changes: +ECOT81TA5 PO; +METF-877 PO; +PRENTAB53 PO
[2023-06-21] MEDS ORDERED: diphenhydrAMINE 50MG/ML VIAL IV PRN ×2 (05:40→09:55)
[2023-06-21] MEDS ORDERED: MEPERIDINE 25 MG/ML 1ML VIAL IV PRN (05:40)
[2023-06-21] MEDS ORDERED: LR 1,000 ML IV ONE (05:40)
[2023-06-21] MEDS ORDERED: NALOXONE INJ 0.4MG/1ML VIAL IV PRN ×4 (05:40→09:55)
[2023-06-21] MEDS ORDERED: SLF 3 ML SYR IV SCH (05:40)
[2023-06-21] MEDS ORDERED: ceFAZolin SOD 2 GM in IV 1 EA IV ONE (05:40)
[2023-06-21] MEDS ORDERED: **NOTE PATIENT COMMENT** MISC XX SCH ×2 (05:40→09:55)
[2023-06-21] MEDS ORDERED: fentaNYL 100 MCG/2 ML INJECTION IV PRN ×2 (05:40→09:55)
[2023-06-21] MEDS ORDERED: oxyCODONE 5MG TAB PO PRN ×2 (05:40→09:55)
[2023-06-21] MEDS ORDERED: METOCLOPRAMIDE INJ 10MG/2ML VIAL IV PRN ×2 (05:40→09:55)
[2023-06-21] MEDS ORDERED: ONDANSETRON 4MG 2ML VIAL IV PRN ×3 (05:40→09:55)
[2023-06-21] MEDS ORDERED: BICITRA 30ML SOLN UDC PO ONE (05:55)
[2023-06-21] MEDS ORDERED: HOME MED LIST COMPLETE! XX SCH (05:55)
[2023-06-21] MEDS ORDERED: LR 1,000 ML IV SCH ×2 (05:55→09:55)
[2023-06-21 06:38] LABS: HEMATOCRIT 35.2 % (36.0-47.0); HEMOGLOBIN 11.3 g/dl (12.0-15.5); MEAN CORPUSCULAR HEMOGLOBIN 28.1 pg (27.0-33.0); MEAN CORPUSCULAR HGB CONC 32.1 g/dl (32.0-36.5); MEAN CORPUSCULAR VOLUME 87.6 fl (80.0-96.0); PLATELET COUNT, AUTOMATED 182 10^3/uL (150-450); RED BLOOD COUNT 4.02 10^6/uL (4.00-5.40); WHITE BLOOD COUNT 12.7 10^3/uL (4.0-10.0)
[2023-06-21] MEDS ORDERED: OXYTOCIN 30UNITS IN 0.9% NaCl 500ML IV BAG As Ordered ONE ×2 (07:11→09:46)
[2023-06-21] MEDS ORDERED: MORPHINE PRES-FREE INJ 10 MG/10 ML VIAL As Ordered ONE (07:11)
[2023-06-21] MEDS ORDERED: PHENYLephrine 500MCG 5ML (100MCG/ML) SYRINGE As Ordered ONE (07:11)
[2023-06-21] MEDS ORDERED: ePHEDrine SULFATE 25 MG/5 ML(5MG/ML) SYRINGE As Ordered ONE (07:11)
[2023-06-21] MEDS: LR 1,000 ML IV SCH ×2 (07:19→20:11)
[2023-06-21] MEDS ORDERED: ONDANSETRON 4MG 2ML VIAL As Ordered ONE (08:15)
[2023-06-21] MEDS ORDERED: KETOROLAC 60MG 2ML VIAL As Ordered ONE (08:15)
[2023-06-21] MEDS ORDERED: ANUSOL HC CREAM 30GM TOP PRN (09:10)
[2023-06-21] MEDS ORDERED: PERCOCET 5MG/325MG TAB PO PRN ×2 (09:10)
[2023-06-21] MEDS ORDERED: RHOGAM 300MCG (1500IU) INJ IM SCH (09:10)
[2023-06-21] MEDS ORDERED: OXYTOCIN DRIP 30 UNITS in IV 1 EA IV SCH (09:10)
[2023-06-21] MEDS ORDERED: ACETAMINOPHEN 500 MG TAB PO PRN (09:10)
[2023-06-21] MEDS ORDERED: SIMETHICONE 80MG CHEW TAB PO PRN (09:10)
[2023-06-21] MEDS ORDERED: PERCOCET PO (09:13)
[2023-06-21] MEDS ORDERED: COLA100C5 PO (09:13)
[2023-06-21] MEDS ORDERED: IBUP80TA PO (09:13)
[2023-06-21] MEDS: SLF 3 ML SYR IV SCH ×2 (09:55→17:55)
[2023-06-21] MEDS: KETOROLAC 30 MG/ML 1ML VIAL IV SCH ×2 (17:38→22:02)
[2023-06-21] MEDS: DOCUSATE SODIUM 100MG CAPSULE PO SCH (22:02)
[2023-06-22 02:00] VITALS: BP 134/67; O2SAT 97
[2023-06-22] MEDS: SLF 3 ML SYR IV SCH (03:29)
[2023-06-22] MEDS: KETOROLAC 30 MG/ML 1ML VIAL IV SCH (03:29)
[2023-06-22 05:47] VITALS: BP 116/57; O2SAT 98
[2023-06-22 07:35] LABS: HEMATOCRIT 34.4 % (36.0-47.0); HEMOGLOBIN 11.2 g/dl (12.0-15.5); MEAN CORPUSCULAR HEMOGLOBIN 28.5 pg (27.0-33.0); MEAN CORPUSCULAR HGB CONC 32.6 g/dl (32.0-36.5); MEAN CORPUSCULAR VOLUME 87.5 fl (80.0-96.0); PLATELET COUNT, AUTOMATED 202 10^3/uL (150-450); RED BLOOD COUNT 3.93 10^6/uL (4.00-5.40); WHITE BLOOD COUNT 13.5 10^3/uL (4.0-10.0)
[2023-06-22] MEDS: DOCUSATE SODIUM 100MG CAPSULE PO SCH ×2 (07:44→20:20)
[2023-06-22] MEDS: PRENATAL VITAMINS CHEWABLE TABLET PO SCH (09:00)
[2023-06-22 10:00] VITALS: BP 132/78; O2SAT 99
[2023-06-22] MEDS: IBUPROFEN 800 MG TAB PO SCH ×2 (11:00→19:40)
[2023-06-22 14:00] VITALS: BP 128/63; O2SAT 97
[2023-06-22 18:00] VITALS: BP 132/76; O2SAT 97
[2023-06-22 21:56] VITALS: BP 139/73; O2SAT 98
[2023-06-23] MEDS: IBUPROFEN 800 MG TAB PO SCH ×2 (02:04→11:20)
[2023-06-23 02:05] VITALS: BP 112/66; O2SAT 99
[2023-06-23 05:43] VITALS: BP 131/75; O2SAT 97
[2023-06-23] MEDS ORDERED: MEASLES,MUMPS,RUBELLA VACCINE INJ (MMR-II) SC.IMMUN ONE (09:00)
[2023-06-23] MEDS: PRENATAL VITAMINS CHEWABLE TABLET PO SCH (09:00)
[2023-06-23] MEDS: DOCUSATE SODIUM 100MG CAPSULE PO SCH (09:21)
== END 2023-06-23 13:47 | disposition home or self-care (01) | DRG 540 ==
LOC: M LDI 05:34 → M OBS 11:20
PROVIDERS: ADMIT Obstetrics & Gynecology; ATTEND Obstetrics & Gynecology
PROC: 10D00Z1 Extraction of Products of Conception, Low, Open Approach (ICD-10-PCS; principal; 2023-06-21)
DX: O13.4 Gestational [pregnancy-induced] hypertension without significant proteinuria, complicating childbirth (principal); Z37.0 Single live birth; Z3A.37 37 weeks gestation of pregnancy; O24.425 Gestational diabetes mellitus in childbirth, controlled by oral hypoglycemic drugs; O34.211 Maternal care for low transverse scar from previous cesarean delivery

== ENCOUNTER → 2024-04-23 | Outpatient (REF) | payer BC ==
[2024-04-28 14:57] LABS: HPV APTIMA Not Detected (Not Detected)
== END ==
LOC: M SFHCWAGY 13:06
PROVIDERS: ATTEND Nurse Practitioner Family
DX: Z12.4 Encounter for screening for malignant neoplasm of cervix (principal)
CPT/HCPCS: 87624; G0123

== ENCOUNTER → 2024-11-16 | Outpatient (CLI) | payer BC | LOC: M PLAIMG 11:54 | PROVIDERS: ATTEND Physician Assistant | DX: M25.571 Pain in right ankle and joints of right foot (principal); M25.541 Pain in joints of right hand; M25.572 Pain in left ankle and joints of left foot; M25.542 Pain in joints of left hand ==

== ENCOUNTER → 2024-11-19 | Outpatient (CLI) | payer BC ==
[~2024-11-19] MED LIST changes: +ISOVUE-370 76% 100ML VIAL ONE
[2024-11-19 11:14] LABS: BASO # 0.1 10^3/uL (0.0-0.2); BASO % 0.8 % (0.0-1.0); EOS # 0.3 10^3/uL (0.0-0.5); EOS % 4.5 % (0.0-3.0); HEMATOCRIT 41.3 % (36.0-47.0); HEMOGLOBIN 13.3 g/dl (12.0-15.5); LYMPH # 2.4 10^3/uL (1.5-5.0); LYMPH % 38.2 % (24.0-44.0); MEAN CORPUSCULAR HEMOGLOBIN 29.1 pg (27.0-33.0); MEAN CORPUSCULAR HGB CONC 32.2 g/dl (32.0-36.5); MEAN CORPUSCULAR VOLUME 90.4 fl (80.0-96.0); MONO # 0.6 10^3/uL (0.0-0.8); MONO % 8.8 % (2.0-8.0); NEUTROPHILS % 47.4 % (36.0-66.0); PLATELET COUNT, AUTOMATED 217 10^3/uL (150-450); RED BLOOD COUNT 4.57 10^6/uL (4.00-5.40); WHITE BLOOD COUNT 6.3 10^3/uL (4.0-10.0)
[2024-11-19 11:15] LABS: RHEUMATOID FACTOR QUANT < 3.5 IU/ML (<14)
[2024-11-19 11:16] LABS: C REACTIVE PROTEIN QUANTITATIV 1.04 MG/DL (<1.0)
[2024-11-19 11:17] LABS: ALBUMIN 4.1 G/DL (3.2-5.2); ALKALINE PHOSPHATASE 64 U/L (35-104); ALT/SGPT 26 U/L (7.0-40); AST/SGOT 17 U/L (<34); BILIRUBIN,TOTAL 0.4 MG/DL (0.3-1.2); BLOOD UREA NITROGEN 10 MG/DL (9-23); CALCIUM LEVEL 8.6 MG/DL (8.5-10.1); CARBON DIOXIDE LEVEL 28 MMOL/L (20-31); CHLORIDE LEVEL 105 MMOL/L (98-107); CHOLESTEROL LEVEL 192 MG/DL (<200); CHOLESTEROL RISK RATIO 3.68 (<5); CREATININE FOR GFR 0.59 MG/DL (0.55-1.30); GLOMERULAR FILTRATION RATE > 60.0 (>60); GLUCOSE, FASTING 95 MG/DL (60-100); HDL CHOLESTEROL 52.1 MG/DL (>40); LDL CHOLESTEROL 110.7 MG/DL (<100); NON-HDL-C 139.9 MG/DL; POTASSIUM SERUM 3.6 MMOL/L (3.5-5.1); SODIUM LEVEL 142 MMOL/L (136-145); TOTAL PROTEIN 7.2 G/DL (5.7-8.2); TRIGLYCERIDES LEVEL 146 MG/DL (<150)
[2024-11-19 11:19] LABS: TOTAL 25(OH) VITAMIN D 28.4 NG/ML (20.0-100.0)
[2024-11-19 11:24] LABS: ERYTHROCYTE SEDIMENTATION RATE 14 mm/hr (0-20)
[2024-11-20 15:22] LABS: ANA SCREEN, IFA NEGATIVE (NEGATIVE)
[2024-11-21 01:43] LABS: CYCLIC CITRULLINATED PEPTIDE < 16 UNITS (<20)
[2024-11-23 13:47] LABS: LYME TOTAL ANTIBODY CIA <= 0.90 Index (<=0.90)
== END ==
LOC: M PLAIMG 07:24
PROVIDERS: ATTEND Physician Assistant
DX: R79.82 Elevated C-reactive protein (CRP) (principal); M25.549 Pain in joints of unspecified hand; E78.00 Pure hypercholesterolemia, unspecified; E55.9 Vitamin D deficiency, unspecified; Z82.49 Family history of ischemic heart disease and other diseases of the circulatory system
CPT/HCPCS: 36415; 71275; 80053; 80061; 82306; 85025; 85652; 86038; 86140; 86200; 86431; 86618; Q9967

== ENCOUNTER → 2025-05-20 | Outpatient (REF) | payer BC ==
[~2025-05-20] MED LIST changes: -ISOVUE-370 76% 100ML VIAL ONE
[2025-05-22 13:08] LABS: HPV APTIMA Not Detected (Not Detected)
== END ==
LOC: M SFHCWAGY 17:06
PROVIDERS: ATTEND Nurse Practitioner Family
DX: Z12.4 Encounter for screening for malignant neoplasm of cervix (principal); R87.610 Atypical squamous cells of undetermined significance on cytologic smear of cervix (ASC-US)
CPT/HCPCS: 87624; G0123